=== PATIENT | female | born 1990 | race Two or more races ===

== ENCOUNTER 2024-07-13 09:16 | Emergency (ER) | payer MEDICAID, OTHER ==
[~2024-07-13] VITALS: Ht 154.9 cm; Wt 65.2 kg
[2024-07-13 09:57] VITALS: BP 127/84; PULSE 101; RESP 19; TEMP 98.9; O2SAT 97
--- NOTE | 2024-07-13 10:37 | ED.PDOC ---
SOB-HPI HPI Comments This is a pleasant 33-year-old female with a MHx that presents for follow up on her URI symptoms. Admits she was seen at an urgent care two days ago and was diagnosed with tonsillitis and patient was prescribed prednisone 20 mg daily x5 days and a course of Keflex but patient continues to endorse a cough that is usually worse before bedtime. Also complains of throat pain when swallowing her saliva. States she tried her albuterol inhaler with minimal improvement. Denies fevers chills night sweats unintentional weight loss Denies persistent chest pain, shortness of breath, leg swelling Denies history of pneumonia Denies recent international travel Chief Complaint: Asthma Time Seen by MD: 09:41 Reviewed notes: Nurses Notes, Medications, Allergies Information Source: Patient Mode of Arrival: Ambulatory Past Medical History PAST MEDICAL HISTORY: Denies Surgical History: Denies all surgeries FRANCHISE DEVELOPMENT MANAGER History: No Pertinent FRANCHISE DEVELOPMENT MANAGER History All Other Systems: Reviewed and Negative (Per HPI) Physical Exam General Appearance: No Apparent Distress, Normal HEENT: Normal ENT Inspection, Pharynx Normal, TMs Normal Neck: Full Range of Motion, Non-Tender, Normal, Normal Inspection Respiratory: Chest Non-Tender, Lungs Clear, No Accessory Muscle Use, No Respiratory Distress, Normal Breath Sounds Cardiovascular: No Edema, No JVD, No Murmur, No Gallop, Normal Peripheral Pulses, Regular Rate/Rhythm Breast Exam: Deferred Gastrointestinal: No Organomegaly, Non Tender, No Pulsatile Mass, Normal Bowel Sounds, Soft Genitalia: Deferred Pelvic: Deferred Rectal: Deferred Extremities: No calf tenderness, Normal capillary refill, Normal inspection, Normal range of motion, Non-tender, No pedal edema Musculoskeletal : Apperance: Normal Neurologic: Alert, field marketing associate II-XII nml as Tested, No Motor Deficits, Normal Affect, Normal Mood, No Sensory Deficits Cerebellar Function: Normal Reflexes: Normal Skin: Dry, Normal Color, Warm Lymphatic: No Adenopathy Was a procedure done? Was a procedure done?: No Differential Dx Differential Diagnosis: Bronchitis X-Ray, Labs, Meds, VS Vital Signs Date Time Temp Pulse Resp B/P (MAP) Pulse Ox O2 Delivery O2 Flow Rate FiO2 07/13/24 09:57 98.9 101 19 127/84 (98) 97 98.9 07/13/24 09:57 101 19 97 Room Air 07/13/24 09:36 98.9 101 19 127/84 (62) 97 Current Medications Medications (Trade) Dose Ordered Sig/Maria T Route Start Time Stop Time Status Last Admin Dexamethasone Sodium Phosphate (Decadron Injection) 10 mg ONCE ONCE IM 07/13/24 10:45 07/13/24 10:46 DC 07/13/24 11:16 Promethazine HCl/ Codeine (Phenergan W/ Codeine) 5 ml ONCE ONCE PO 07/13/24 10:45 07/13/24 10:46 DC 07/13/24 10:45 X-Ray, Labs, Meds, VS Comment This is a pleasant 33-year-old female with a MHx that presents for follow up on her URI symptoms. History gathered from patient independent historian. Considered labs and diagnostic imaging for URI symptoms such as a chest x-ray, RSV, influenza, COVID swab but patient appears nontoxic non ill-appearing. Vital signs stable on room air. Lungs clear throughout. No signs of respiratory distress. History and physical consistent of URI Take medication as prescribed Discussed that cough can linger up to 6 weeks after viral URI ED precautions if cough does not alleviate or if cough worsens Supportive care and return precautions discussed Counseled viral infection and explained that antibiotics would not be helpful in resolving the illness sooner. Recommended vitamin C, rest, handwashing, and symptomatic care. Expect 2-week course with possibly of cough lingering up to 6 weeks. Nonpharmacological remedies for fluids has been recommended as well On reevaluation, patient had symptomatic improvement. Patient is stable for discharge at this time. All diagnostic findings, discharge care, education and instructions provided Follow-up with PCP in 2 to 3 days Patient verbalized understanding and agreed to treatment plan Vital signs stable, afebrile, no acute distress noted Patient ambulatory with strong steady gait Advised to return precautions for any new or worsening symptoms, return to ER immediately for re-evaluation Patient is aware that the purpose of this visit was for an acute medical emergency requiring emergent stabilization. Chronic conditions, including malignancies have not been ruled out. Patient is instructed to follow up with PCP as directed and discharge instructions for continued care and workup. If unable to arrange follow-up, patient is to return to the emergency department for reassessment. Patient (parent or legal guardian if applicable) was given verbal and written discharge instructions and acknowledges understanding. Time of 1ST Reevaluation: 10:34 Reevaluation 1ST: Improved Patient Education/Counseling: Diagnosis, Treatment Family Education/Counseling: Diagnosis, Treatment Departure 1 Departure Time of Disposition: 12:03 Impression: Primary Impression: Asthmatic bronchitis Qualified Codes: J45.20 - Mild intermittent asthma, uncomplicated Disposition: 01 HOME / SELF CARE / HOMELESS Condition: Stable e-Prescriptions Benzonatate (Benzonatate) 200 Mg Cap 1 CAP PO TID for 10 Days, #30 CAP 0 Refills Prov: TROY BANSAL NP 07/13/24 Promethazine-Dm (Promethazine Dm 6.25-15 mg/5Ml) 1 Anjana Anjana 5 ML PO TIDPRN PRN for 10 Days, #150 ML 0 Refills Prov: TROY BANSAL NP 07/13/24 Discharged With: Self Critical Care Note Critical Care Time?: No Stability Stability form required: No Heart Score Heart Score: Heart Score Response (Comments) Value History N/A 0 EKG N/A 0 Age N/A 0 Risk Factors N/A 0 Troponin N/A 0 Total 0 TROY BANSAL NP Jul 13, 2024 10:37
[2024-07-13] MEDS: PROMETHAZINE W/CODEINE 5 ML ORAL SYRUP PO ONE (10:45)
[2024-07-13] MEDS: DexAMETHasone SOD PHOS 10MG/1ML VIAL INJ IM ONE (11:16)
[2024-07-13] MEDS ORDERED: BENZ200C64 PO (12:05)
[2024-07-13] MEDS ORDERED: PROM1SOL4 PO (12:05)
== END 2024-07-13 12:42 | disposition home or self-care (01) ==
LOC: ER 09:16
DX: J45.909 Unspecified asthma, uncomplicated (principal); Z79.52 Long term (current) use of systemic steroids
CPT/HCPCS: 96372; 99283; J1100

== ENCOUNTER 2025-06-27 13:52 | Emergency (ER) | payer OTHER, MEDICAID ==
[~2025-06-27] VITALS: Ht 154.9 cm; Wt 64.5 kg
[~2025-06-27 13:52] MED LIST: BENZ200C64 PO; PROM1SOL4 PO
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
[2025-06-27 15:20] VITALS: BP 129/77; TEMP 98.4; O2SAT 97
--- NOTE | 2025-06-27 15:27 | DVH ---
CT HEAD WITHOUT CONTRAST INDICATION: [facility] COMPARISON: None TECHNIQUE: CT of the head without intravenous contrast. RADIATION DOSE: CTDIvol: 55 mGy, DLP: 884 mGy*cm FINDINGS: There is no evidence of acute intracranial hemorrhage, extra-axial collection, mass effect, midline shift, herniation or hydrocephalus. The ventricles, sulci and cisterns are age appropriate. The dey-white differentiation is intact. The visualized paranasal sinuses and mastoid air cells are clear. The surrounding soft tissues and osseous structures are unremarkable. IMPRESSION: 1. No evidence of acute intracranial hemorrhage, mass effect or hydrocephalus.
[2025-06-27] MEDS ORDERED: IBU600T PO (16:27)
[2025-06-27 16:43] VITALS: PULSE 77; RESP 16; O2SAT 97
== END 2025-06-27 16:45 | disposition home or self-care (01) ==
LOC: ER 13:52
DX: S06.0XAA Concussion with loss of consciousness status unknown, initial encounter (principal); R11.0 Nausea; V43.52XA Car driver injured in collision with other type car in traffic accident, initial encounter; Y93.89 Activity, other specified; Y92.410 Unspecified street and highway as the place of occurrence of the external cause; Y99.8 Other external cause status
CPT/HCPCS: 70450